=== PATIENT | female | born 1965 | race Caucasian/White ===

== ENCOUNTER 2019-05-01 05:34 | Day surgery (SDC) | payer BC ==
[2019-05-01] MEDS ORDERED: Glycopyrrolate 0.2 MG/ML 2 ML SDV IVPUSH ONE (06:00)
[2019-05-01] MEDS ORDERED: Dextrose 5%-Lactated Ringers 1,000 ML IV SCH (06:00)
[2019-05-01] MEDS ORDERED: Propofol 200 MG/20 ML SDV ONE (06:59)
[2019-05-01] MEDS ORDERED: fentaNYL 100 MCG/2 ML SDV ONE (06:59)
[2019-05-01] MEDS ORDERED: Midazolam 1 MG/ML 2 ML SDV ONE (06:59)
[2019-05-01] MEDS ORDERED: Pantoprazole 40 MG Vial IVPUSH ONE (07:31)
--- NOTE | 2019-05-04 13:50 | OR ---
DATE OF PROCEDURE: 05/01/2019 PREOPERATIVE DIAGNOSIS: Weight regain status post previous reversal of Justina-en-Y gastric bypass. POSTOPERATIVE DIAGNOSES: 1. Weight regain status post previous reversal of Justina-en-Y gastric bypass. 2. Diffuse gastritis with antral erosions. OPERATIVE PROCEDURES: Upper GI endoscopy with antral biopsies for CLOtest. ANESTHESIA: IV sedation. INDICATION FOR PROCEDURE: This is a 54-year-old female status post previous Justina-en-Y gastric bypass due to nutritional problems which many years ago had been reversed and she now presents with significant weight regain and decided to proceed with a secondary Justina-en- Y gastric bypass to evaluate the current anatomy. She is to undergo an upper GI endoscopy with biopsies as indicated. Potential risks including bleeding and perforation were discussed, and the patient wishes to proceed. DETAILS OF PROCEDURE: The patient was taken to the operating room and placed in a left lateral decubitus position. IV sedation was administered after which the upper GI endoscope was passed orally through the length of the esophagus and into the stomach with retroflexion view of the fundus, thereafter through the pyloric channel into the junction of the third and fourth portions of the duodenum. Findings included normal hypopharynx, larynx, upper esophageal sphincter, and esophageal body. At the EG junction, there were no significant abnormalities noted. No significant hiatal hernia was present. As one passed into the stomach, the area of the anastomosis was identified. This was in the range of a cm from the esophagogastric junction, i.e. fairly low. The patient did have some bowel retention and more or less diffuse gastritis with some scattered erosions in the antrum. The pyloric channel and visualized portion of the duodenum were unremarkable. At this point, biopsies were obtained from the antrum for check of the patient's H pylori status. Minimal bleeding from the biopsy sites was seen and the procedure then concluded. The patient will be given Protonix 40 mg IV push in the recovery room and then started on Protonix 40 mg a day. If the H pylori is positive either on today's exam or yesterday, we would need to treat that. Otherwise, we would likely keep her on the Protonix until she has gone through the preoperative process to eventually get prior authorization for repeat Justina-en-Y gastric bypass. When that is performed, the gastrojejunostomy will need to be fairly high and some of the proximal stomach resected to make sure that we are not leaving some ischemic segment of stomach below the newly constructed pouch. Willie Zayas MD /[id number]
== END 2019-05-01 08:54 | disposition home or self-care (01) ==
LOC: JP.SDS 05:34
PROVIDERS: ATTEND Surgery
DX: R63.5 Abnormal weight gain (principal); K29.70 Gastritis, unspecified, without bleeding; K25.9 Gastric ulcer, unspecified as acute or chronic, without hemorrhage or perforation; J45.909 Unspecified asthma, uncomplicated; F17.200 Nicotine dependence, unspecified, uncomplicated; Z98.84 Bariatric surgery status; Z68.38 Body mass index [BMI] 38.0-38.9, adult
CPT/HCPCS: 43239; 87081; C9113; J2250; J2704; J3010; J3490; J7042